=== PATIENT | female | born 1955 | race Two or more races ===

== ENCOUNTER 2024-07-29 06:24 | Day surgery (SDC) | payer MEDICARE, OTHER ==
[2024-07-24 13:50] LABS: Urine Bacteria None Seen /hpf (None Seen)
[2024-07-24 14:04] LABS: Basophils # (auto) 0.1 10 ^3/uL (0-0.2); Basophils % (auto) 0.6 % (0.0-2.0); Eosinophils # (auto) 0.2 10 ^3/uL (0-0.8); Eosinophils % (auto) 1.8 % (0.0-7.0); Hematocrit 42.7 % (36.0-46.0); Hemoglobin 14.3 g/dL (12.2-16.2); Lymphocytes # (auto) 3.8 10 ^3/uL (0.4-5.4); Lymphocytes % (auto) 33.9 % (10.0-50.0); Mean Corpuscular Hemoglobin 30.6 pg (28.0-32.0); Mean Corpuscular Hgb Conc. 33.4 g/dL (32.0-36.0); Mean Corpuscular Volume 91.6 fL (80.0-100.0); Monocytes # (auto) 0.9 10 ^3/uL (0-1.3); Monocytes % (auto) 7.8 % (0.0-12.0); Neutrophils # (auto) 6.3 10 ^3/uL (1.6-8.6); Neutrophils % (auto) 55.9 % (37.0-80.0); Platelet Count (auto) 283 10^3/uL (140-450); Red Blood Cells 4.67 10^6/uL (4.0-5.20); Red Cell Distribution Width 12.8 % (11.8-14.3); White Blood Cell 11.3 10^3/uL (4.4-10.8)
[2024-07-24 14:17] LABS: Alanine Aminotransferase 21 U/L (7-40); Albumin 4.5 g/dL (3.2-4.8); Alkaline Phosphatase 104 U/L (46-116); Anion Gap 7 (5-15); Aspartate Aminotransferase 25 U/L (13-40); BUN/Creatinine Ratio 19.8 (10.0-20.0); Blood Urea Nitrogen 17 mg/dL (9-23); Carbon Dioxide 30 mmol/L (20-31); Chloride 103 mmol/L (98-107); Potassium 3.8 mmol/L (3.5-5.1); Sodium 140 mmol/L (136-145)
[2024-07-24 14:18] LABS: Bilirubin, Total 0.4 mg/dL (0.2-1.0)
[2024-07-24 14:19] LABS: Calcium 10.4 mg/dL (8.7-10.4); Glucose 130 mg/dL (74-106)
[2024-07-24 16:18] LABS: Urine Blood 1+ /uL (Negative); Urine Clarity Clear (Clear); Urine Color Light-Yellow (Yellow); Urine Protein, UAD Negative (Negative); Urine Squamous Epithelial Cell FEW /hpf (<5); Urine Urobilinogen Normal (Negative); Urine WBC 2 /hpf (0 - 5); Urine pH 5.5 (5.0-9.0)
[2024-07-24 16:50] LABS: INR 1.03 (0.9-1.15); Prothrombin Time 10.9 sec (9.3-11.8)
[~2024-07-29] VITALS: Ht 162.6 cm; Wt 63.5 kg
[2024-07-29] MEDS ORDERED: BUPIVACAINE HCL 50 ML ONE (06:48)
[2024-07-29] MEDS ORDERED: EPINEPHrine HCL 1 MG/1 ML AMP ONE (06:48)
[2024-07-29] MEDS ORDERED: ceFAZolin 2 GM/D5W100ml 100 ML IV ONE (07:06)
[2024-07-29] MEDS ORDERED: LIDOCAINE 2% JELLY 11ml (GLYDO) ONE (07:16)
[2024-07-29] MEDS ORDERED: MIDAZOLAM HCL 2MG/2ML 2ml VIAL (1mg/ml) ONE (07:24)
[2024-07-29] MEDS ORDERED: MEPERIDINE HCL (25 MG/ML) 1ML VIAL ONE (07:24)
[2024-07-29] MEDS ORDERED: SODIUM CHLORIDE LOCK 10 ML ONE (07:24)
[2024-07-29] MEDS ORDERED: LIDOCAINE 1% INJ PF 5ML AMP ONE (07:24)
[2024-07-29] MEDS ORDERED: KETAMINE 50mg/ML 1ml syringe ONE (07:24)
[2024-07-29] MEDS ORDERED: LIDOCAINE HCL 2% TOP JELLY 5ML TOP ONE (07:24)
[2024-07-29] MEDS ORDERED: DexAMETHasone SOD PHOS 10MG/1ML VIAL INJ ONE (07:24)
[2024-07-29] MEDS ORDERED: PROPOFOL 10 MG/ML 20 ML IV ONE (07:24)
[2024-07-29] MEDS ORDERED: fentaNYL CITRATE 100 MCG/2 ML VL ONE (07:24)
[2024-07-29] MEDS ORDERED: ONDANSETRON HCL 4 MG/2 ML VIAL ONE (07:24)
[2024-07-29] MEDS ORDERED: KETOROLAC TROMETH 30 MG/ML 1ML VIAL IV ONE (07:30)
[2024-07-29] MEDS ORDERED: fentaNYL CITRATE 100 MCG/2 ML VL IV PRN (07:30)
[2024-07-29] MEDS ORDERED: METOCLOPRAMIDE HCL 5MG/ml INJ 2ml VIAL IV ONE (07:30)
[2024-07-29] MEDS ORDERED: MORPHINE SULFATE INJ 2 MG/ml SYRG IV PRN (07:30)
[2024-07-29] MEDS ORDERED: HYDROmorphone HCL 2 MG/ML VL/or syr IV PRN ×3 (07:30)
[2024-07-29] MEDS: BUPIVACAINE 0.5% INJ 50ML VIAL IJ ONE (08:36)
[2024-07-29] MEDS ORDERED: ASPI-498 OR (08:56)
[2024-07-29 09:03] VITALS: PULSE 72; RESP 12; TEMP 97.8; O2SAT 100
[2024-07-29 09:18] VITALS: PULSE 76; RESP 13; O2SAT 100
[2024-07-29 09:38] VITALS: BP 169/56; PULSE 71; RESP 12; O2SAT 99
--- NOTE | 2024-07-29 10:51 | DVHOP2 ---
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 These include but are not limited to complications of anesthesia, postoperative infection, incomplete relief of symptoms, recurrence of symptoms, damage to blood vessels, nerves and tendons, deep venous thrombosis, pulmonary embolism and possible need for repeat surgery in the future. Complications: None Estimated Blood Loss: Less than 10 mL Indications for Surgery: The patient is a 68-year-old female who presented to the clinic with a history of chronic knee pain. Clinical and radiological evaluation demonstrated a complex medial meniscus tear. Chondromalacia was also noted although the x-rays do not show much joint space narrowing. MRI did show some chondromalacia. Nonoperative and operative management options were discussed. Surgery in the form of knee arthroscopy with partial medial meniscectomy was discussed with her. Guarded prognosis also discussed and it was mentioned that her alternatives would be live with the pain, injections, brace, physical therapy and total knee replacement. We discussed other options as well. After thorough discussion, she wanted to try knee arthroscopy to get her some months or if years of pain relief before she can go ahead with a total knee replacement. Benefits, risks and treatment alternatives were discussed. Name of Procedure Performed Left knee arthroscopy with partial medial and lateral meniscectomies with chondroplasty of all three compartments Procedure Details Procedure Details: The patient was identified in the preoperative holding area and the surgical site was marked. The consent was verified. The patient was brought into the operating room and placed supine on the operating table. General anesthesia was administered. A tourniquet was applied over the proximal thigh. All the bony prominences were appropriately padded. The knee was positioned appropriately. The extremity was now prepped and draped in the usual sterile manner. A timeout was called out to confirm the identity of the patient, the nature of surgery, the site of surgery, the availability of implants and x-rays and allergies to medications. A standard anterolateral portal was established. A 30 degree scope was inserted. A standard anteromedial portal was established, a probe was inserted and the findings are as follows 1. Complex medial meniscus tear 2. Intact ACL and PCL 3. 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 Grade 3 chondromalacia lateral femoral and tibial cartilage 5. Grade 3 chondromalacia trochlea 6. Lateral meniscus tear, degenerative, peripheral Based on these findings, I did a partial lateral meniscectomy, partial medial meniscectomy with the help of a shaver. Stable edges were achieved. Chondroplasty was done to remove the unstable flap from the medial and the lateral side. Irrigation was given. The incisions were closed with 3-0 Monocryl. A sterile dressing was applied. Condition Good Disposition Home RUPAL WALDEN MD Jul 29, 2024 10:51
== END 2024-07-29 10:00 | disposition home or self-care (01) ==
LOC: SUR 06:24
PROVIDERS: ATTEND Orthopaedic Surgery Sports Medicine
DX: S83.232A Complex tear of medial meniscus, current injury, left knee, initial encounter (principal); M23.362 Other meniscus derangements, other lateral meniscus, left knee; M17.10 Unilateral primary osteoarthritis, unspecified knee; M94.262 Chondromalacia, left knee; G89.29 Other chronic pain; X58.XXXA Exposure to other specified factors, initial encounter; Y93.89 Activity, other specified; Y92.89 Other specified places as the place of occurrence of the external cause; Y99.8 Other external cause status
CPT/HCPCS: 29880; 36415; 80053; 81001; 85025; 85610; 85730; J1100; J2175; J2250; J2405; J2704; J3010; J3490; J0171